=== PATIENT | male | born 1965 | race Caucasian/White ===

== ENCOUNTER 2024-06-16 14:51 | Emergency (ER) | payer BC, SELFPAY ==
--- NOTE | ~2024-06-16 | XR_ITS ---
EXAMINATION: XR hand RT min 3V DATE: 06/16/2024 16:28 INDICATION: Right hand injury. TECHNIQUE: 3 views of right hand were obtained. COMPARISON: None. FINDINGS: There is amputation of the tip of third distal phalanx. No fracture. There is severe osteoa rthritis of triscaphe joint and mild osteoarthritis of first carpometacarpal joint and some of the me tacarpophalangeal joints and interphalangeal joints. There is severe osteoarthritis of fourth distal interphalangeal joint and moderate osteoarthritis of second and fifth distal interphalangeal joints. IMPRESSION: 1. 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 Reviewed, dictated and finalized at location A. TRONICS DEPARTMENT MANAGER
--- NOTE | ~2024-06-16 | XR_ITS ---
EXAMINATION: XR femur LT min 2V DATE: 06/16/2024 16:28 INDICATION: Left lower limb injury. TECHNIQUE: 2 views of left femur on 4 radiographs were obtained. COMPARISON: None. FINDINGS: Alignment is normal. No fracture. There is mild left knee osteoarthritis. Left hip joint sp janny is normal. No knee joint effusion. IMPRESSION: 1. No fracture. Reviewed, dictated and finalized at location A. T AID INSTRUCTOR IMPRESSION: 1. No fracture.
--- NOTE | ~2024-06-16 | CT_ITS ---
CT cervical spine wo con Ordering provider: Tammi Tariq APRN History: . neck injury s/p trampled by cows . Comparison: None. Technique: CT of the cervical spine was performed without contrast. Sagittal and coronal reformatted images were also obtained and reviewed. Automated exposure control and iterative reconstruction josef hnique were employed. The dose-length product was 450.34 mGy-cm. FINDINGS: VERTEBRAE: No subluxation or acute fracture. The occipital condyles are intact. Degenerative changes of the spine. DISC SPACES: Narrowing of the disc C6-C7. Multilevel facet joint disease. Multilevel uncovertebral daniel int osteoarthritic changes. Narrowing of the right foramen at the level of C3-C4 bilateral narrowing of the foramina at the level of C4-C5, C5-C6 and C6-C7. PARASPINOUS SOFT TISSUES: Normal. IMPRESSION: No acute osseous abnormality cervical spine. Reviewed, dictated and finalized at location A. NCE PROFESSOR
--- NOTE | ~2024-06-16 | CT_ITS ---
CT brain wo con Ordering provider: Tammi Tariq APRN History: 59 years Male with . head injury after being trampled by cows . Comparison: None. Technique: CT of the head without contrast. Thin FINDINGS: BRAIN PARENCHYMA AND CSF SPACES: No midline shift, mass effect or hemorrhage. The brain parenchyma a nd CSF spaces are otherwise normal. VISUALIZED PARANASAL SINUSES: Right Maxillary sinus disease. MASTOIDS: Well aerated. BONES: The bones appear intact. SOFT TISSUES: Visualized nasopharynx is normal. Superficial soft tissues are normal. IMPRESSION: No acute intracranial findings. Reviewed, dictated and finalized at location A. EDITATION SPECIALIST
--- NOTE | ~2024-06-16 | CT_ITS ---
[facility] Ordering provider: Tammi Fleminguble History: . trampled by cows . Comparison: None. Technique: CT chest, abdomen and pelvis with IV contrast only. Radiation reduction technique utilized .The dose-length product was 1932.68 mGy-cm. 100 mL Omnipaque 350 was given IV. FINDINGS: CHEST: --VISUALIZED THORACIC INLET: Normal. --MEDIASTINUM: Aorta/coronary arteries: The thoracic aorta is normal. Heart/other: The heart is not enlarged. Lymph nodes: No mediastinal or hilar adenopathy. --LUNGS: Dependent atelectatic changes. No pulmonary nodules or masses. No infiltrates or effusions. No pneumothorax. --MUSCULOSKELETAL: Soft tissues: The superficial soft tissues are normal. ABDOMEN/PELVIS: --MUSCULOSKELETAL: Superficial soft tissues: The superficial soft tissues are normal. --UPPER ABDOMINAL ORGANS: Liver: Fat infiltration. Gallbladder: Normal. Spleen: Normal. Stomach/duodenum: Normal. Pancreas: Normal. Adrenals: Normal. Kidneys: Possible tiny stone in the left kidney lower pole. --PELVIC ORGANS: The bladder is normal. --BOWEL AND MESENTERY: Colon: No evidence of diverticulitis.. Normal appendix. Small Bowel: Normal. No obstruction. Peritoneum/mesentery: No free air or free fluid. No mesenteric lymphadenopathy. --RETROPERITONEUM: Normal aorta. No retroperitoneal hemorrhage or aortic trauma. No retroperitonea l lymphadenopathy or retroperitoneal hemorrhage. IMPRESSION: CHEST: 1. No acute cardiopulmonary pathology. ABDOMEN/PELVIS: 1. No acute abdominal process. 2. Fat infiltration of the liver. Highly suggestive stone in the left kidney lower pole. CT [facility] Ordering provider: Tammi Fleminguble History: . trampled by cows . Comparison: None. Technique: CT thoracic spine without contrast. Automated exposure control and iterative reconstructi on technique were employed. The dose-length product was 1932.68 mGy-cm. FINDINGS: VERTEBRAE: Normal height and alignment. No subluxation or visible acute fracture. Degenerative change s of the spine. The irregularity seen in the sternum is most likely artifactual. Clinical evaluation for tenderness advised. DISC SPACES: Well maintained. PARASPINOUS SOFT TISSUES: Normal. IMPRESSION: No acute osseous abnormality of the thoracic spine. CT [facility] Ordering provider: Tammi Tariq History: 59 years Male with . trampled by cows . Comparison: None. Technique: CT lumbar spine without contrast. Automated exposure control and iterative reconstruction technique were employed. The dose-length product was 1932.68 mGy-cm. FINDINGS: VERTEBRAE: Normal height and alignment. No subluxation or visible acute fracture. Degenerative change s of the spine. DISC SPACES: Narrowing of the disc L4-L5 and L5-S1. Multilevel facet joint disease. PARASPINOUS SOFT TISSUES: Mild atheromatous disease of the abdominal aorta. Bilateral sacroiliitis. IMPRESSION: No acute osseous abnormality. Multilevel degenerative disc disease Reviewed, dictated and finalized at location A. TY ENGINEER IMPRESSION: CHEST: 1. No acute cardiopulmonary pathology. ABDOMEN/PELVIS: 1. No acute abdominal process. 2. Fat infiltration of the liver. Highly suggestive stone in the left kidney l ower pole. CT [facility] Ordering provider: Tammi Tariq History: . trampled by cows . Comparison: None. Technique: CT thoracic spine without contrast. Automated exposure control and iterative reconstruction technique were employed. The dose-length product was 1 932.68 mGy-cm. FINDINGS: VERTEBRAE: Normal height and alignment. No subluxation or visible acute fractur e. Degenerative changes of the spine. The irregularity seen in the sternum is m ost likely artifactual. Clinical evaluation for tenderness advised. DISC SPACES: Well maintained. PARASPINOUS SOFT TISSUES: Normal. IMPRESSION: No acute osseous abnormality of the thoracic spine. CT chst ab pel thor lum w Ordering provider: Tammi Tariq History: 59 years Male with . trampled by cows . Comparison: None. Technique: CT lumbar spine without contrast. Automated exposure control and it erative reconstruction technique were employed. The dose-length product was 193 2.68 mGy-cm. FINDINGS: VERTEBRAE: Normal height and alignment. No subluxation or visible acute fractur e. Degenerative changes of the spine. DISC SPACES: Narrowing of the disc L4-L5 and L5-S1. Multilevel facet joint dise ase. PARASPINOUS SOFT TISSUES: Mild atheromatous disease of the abdominal aorta. Bilateral sacroiliitis.
--- NOTE | ~2024-06-16 | XR_ITS ---
EXAMINATION: XR tibia fibula RT 2V DATE: 06/16/2024 16:28 INDICATION: Right lower leg injury. TECHNIQUE: 2 views of right lower leg were obtained. COMPARISON: None. FINDINGS: Bone alignment is normal. No fracture. 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 There is mild right knee osteoarthritis. IMPRESSION: 1. No acute fracture. Reviewed, dictated and finalized at location A. ICULTURE TEACHER IMPRESSION: 1. No acute fracture.
[2024-06-16 14:52] VITALS: BP 146/101; PULSE 108; RESP 20; TEMP 36.5; O2SAT 97
--- NOTE | 2024-06-16 16:08 | ED.HEATRA ---
HPI - Head Injury General Chief complaint: Trauma <Tammi Tariq APRN - Last Filed: 06/16/24 16:12> Stated complaint: trampled by cows-right leg pain <Tammi Tariq APRN - Last Filed: 06/16/24 16:12> Time Seen by Provider: 06/16/24 15:55 <Tammi Tariq APRN - Last Filed: 06/16/24 16:12> Focused HPI: patient is a 59-year-old male reports earlier today he was trampled by two cows. He reports his injuries include a left lower extremity hematoma, head injury, left upper leg injury/hematoma, right hand injury/hematoma, left pelvis injury/hematoma, lower back injury/hematoma, and left hip injury/hematoma. Patient denies loss of consciousness and denies use of a blood thinner. He endorses most of his pain is in his lower extremities. Patient denies chest pain, shortness a breath, one-sided weakness/tingling/ numbness. GENERAL: Well-appearing, well-nourished, and in no acute distress. HEAD: Normocephalic, atraumatic. CHEST: Clear to auscultation. ?No respiratory distress. HEART: Tachycardia and regular rhythm. ? NEURO: ?Alert and oriented x3. FROM in all extremities. Patient screened in triage and initial orders placed.? ?Additional care and disposition to be based upon?diagnostic testing and treatment. <Tammi Tariq APRN - Last Filed: 06/16/24 16:12> History of Present Illness HPI Narrative: Patient 59-year-old gentleman who presents emergency department with chief complaint of being trampled by cows. Patient reports that he got stuck between the cows and reports that he was stepped on multiple times patient reports pain in his left lower extremity and right lower extremity low back pelvis area patient reports he did not lose consciousness reports he remembers the whole thing <Rios Jiang MD - Last Filed: 06/16/24 20:43> Related Data Allergies/Adverse reactions: Allergies Allergy/AdvReac Type Severity Reaction Status Date / Time No Known Allergies Allergy Verified 06/16/24 14:51 <Tammi Tariq APRN - Last Filed: 06/16/24 16:12> Review of Systems Review of Systems: A 10 system review of systems was completed on the patient and is negative except for what is stated in the HPI. Nursing and ancillary documentation was reviewed. <Rios Jiang MD - Last Filed: 06/16/24 20:43> Exam Narrative: GENERAL: Well-appearing, well-nourished, and in no acute distress. HEAD: Normocephalic, atraumatic. EYES: PERRLA and EOMI. ENT: Nares clear, no rhinorrhea or epistaxis. Mucous membranes moist. NECK: Supple. CHEST: Clear to auscultation. No respiratory distress. HEART: Regular rate and rhythm. No murmur heard. Normal peripheral pulses. ABDOMEN: Soft, nontender, nondistended, normal active bowel sounds. back: Multiple bruises present EXTREMITIES: Normal range of motion , multiple contusions. No edema. lower extremity compartments are soft SKIN: Warm, dry, no rash. NEURO: No focal deficits. Alert and oriented x3. PSYCH: Normal mood and affect. <Rios Jiang MD - Last Filed: 06/16/24 20:43> Course Vital Signs Vital signs: Vital Signs Temperature 36.5 C 06/16/24 14:52 Pulse Rate 108 H 06/16/24 14:52 Respiratory Rate 20 06/16/24 14:52 Blood Pressure 146/101 H 06/16/24 14:52 Pulse Oximetry 97 06/16/24 14:52 Oxygen Delivery Room Air 06/16/24 14:52 Temperature 36.4 C L 06/16/24 19:03 Pulse Rate 70 06/16/24 19:31 Respiratory Rate 17 06/16/24 19:31 Blood Pressure 150/94 H 06/16/24 19:31 Pulse Oximetry 95 06/16/24 19:31 Oxygen Delivery Room Air 06/16/24 14:52 <Tammi Tariq APRN - Last Filed: 06/16/24 16:12> Vital Signs Temperature 36.5 C 06/16/24 14:52 Pulse Rate 108 H 06/16/24 14:52 Respiratory Rate 20 06/16/24 14:52 Blood Pressure 146/101 H 06/16/24 14:52 Pulse Oximetry 97 06/16/24 14:52 Oxygen Delivery Room Air 06/16/24 14:52 Temperature 36.4 C L 06/16/24 19:03 Pulse Rate 70 06/16/24 19:31 Respiratory Rate 17 06/16/24 19:31 Blood Pressure 150/94 H 06/16/24 19:31 Pulse Oximetry 95 06/16/24 19:31 Oxygen Delivery Room Air 06/16/24 14:52 <Rios Jiang MD - Last Filed: 06/16/24 20:43> MDM - Head Injury MDM Narrative Medical decision making narrative: differential diagnosis includes intracranial hemorrhage, cervical spine fracture, thoracic trauma abdominal trauma extremity fractures imaging was obtained that showed no intracranial pathology no cervical spine fracture, chest abdomen pelvis injury plain film x-rays of the tib-fib femur and hand showed no evidence of fracture <Rios Jiang MD - Last Filed: 06/16/24 20:43> Lab Data Result diagrams: 06/16/24 17:08 06/16/24 17:08 <Tammi Tariq APRN - Last Filed: 06/16/24 16:12> Labs: Lab Results 06/16/24 Range/Units 17:08 WBC 12.7 H (4.5-10.0) K/mm3 RBC 5.13 (4.6-6.20) M/mm3 Hgb 16.1 (14.0-18.0) g/dL Hct 44.6 (42.0-52.0) % MCV 86.9 (80-100) fl MCH 31.4 (26-34) pg MCHC 36.1 H (32-36) g/dl RDW 13.1 (11.5-14.5) % Plt Count 236 (150-375) k/mm3 MPV 9.5 (7.4-10.4) fl Immature Gran % (Auto) 0.6 H (0-0.5) % Neut % (Auto) 72.4 (45.5-73.1) % Lymph % (Auto) 15.4 L (18.3-44.2) % O'Brien % (Auto) 10.1 H (2.6-8.5) % Eos % (Auto) 1.2 (0-4.4) % Baso % (Auto) 0.3 (0.2-1.2) % Lymph # (Auto) 1.96 (0.9-3.2) K/mm3 O'Brien # (Auto) 1.3 H (0.1-0.6) K/mm3 Eos # (Auto) 0.2 (0-0.3) K/mm3 Baso # (Auto) 0.0 (0.0-0.1) K/mm3 Abs Immat Gran (auto) 0.07 H (0.00-0.031) K/mm3 Absolute Neuts (auto) 9.2 H (1.3-6.7) K/mm3 Absolute Nucleated RBC 0.000 (0.0-0.012) K/mm3 Nucleated RBC % 0.0 (0.0-0.2) % PT 13.2 (11.1-14.7) Seconds INR 1.0 APTT 26.7 (22.3-36.8) Seconds Sodium 138 (137-145) mmol/L Potassium 3.8 (3.4-5.0) mmol/L Chloride 107 (98-107) mmol/L Carbon Dioxide 25 (22-30) mmol/L Anion Gap 6 (4-12) mmol/L BUN 19 (9-20) mg/dL Creatinine 0.80 (0.7-1.3) mg/dL Estim Creat Clear Calc 109 ml/min Estimated GFR > 60 (59 - ) Glucose 110 (65-110) mg/dL Calcium 9.3 (8.4-10.2) mg/dL Total Bilirubin 0.8 (0.2-1.3) mg/dL AST 39 (17-59) U/L ALT 38 (6-50) U/L Alkaline Phosphatase 86 (38-126) U/L Total Protein 7.0 (6.3-8.2) g/dL Albumin 4.4 (3.5-5.1) g/dL <Tammi Tariq, DEPARTMENT CHAIRPERSON - Last Filed: 06/16/24 16:12> Lab Results 06/16/24 Range/Units 17:08 WBC 12.7 H (4.5-10.0) K/mm3 RBC 5.13 (4.6-6.20) M/mm3 Hgb 16.1 (14.0-18.0) g/dL Hct 44.6 (42.0-52.0) % MCV 86.9 (80-100) fl MCH 31.4 (26-34) pg MCHC 36.1 H (32-36) g/dl RDW 13.1 (11.5-14.5) % Plt Count 236 (150-375) k/mm3 MPV 9.5 (7.4-10.4) fl Immature Gran % (Auto) 0.6 H (0-0.5) % Neut % (Auto) 72.4 (45.5-73.1) % Lymph % (Auto) 15.4 L (18.3-44.2) % O'Brien % (Auto) 10.1 H (2.6-8.5) % Eos % (Auto) 1.2 (0-4.4) % Baso % (Auto) 0.3 (0.2-1.2) % Lymph # (Auto) 1.96 (0.9-3.2) K/mm3 O'Brien # (Auto) 1.3 H (0.1-0.6) K/mm3 Eos # (Auto) 0.2 (0-0.3) K/mm3 Baso # (Auto) 0.0 (0.0-0.1) K/mm3 Abs Immat Gran (auto) 0.07 H (0.00-0.031) K/mm3 Absolute Neuts (auto) 9.2 H (1.3-6.7) K/mm3 Absolute Nucleated RBC 0.000 (0.0-0.012) K/mm3 Nucleated RBC % 0.0 (0.0-0.2) % PT 13.2 (11.1-14.7) Seconds INR 1.0 APTT 26.7 (22.3-36.8) Seconds Sodium 138 (137-145) mmol/L Potassium 3.8 (3.4-5.0) mmol/L Chloride 107 (98-107) mmol/L Carbon Dioxide 25 (22-30) mmol/L Anion Gap 6 (4-12) mmol/L BUN 19 (9-20) mg/dL Creatinine 0.80 (0.7-1.3) mg/dL Estim Creat Clear Calc 109 ml/min Estimated GFR > 60 (59 - ) Glucose 110 (65-110) mg/dL Calcium 9.3 (8.4-10.2) mg/dL Total Bilirubin 0.8 (0.2-1.3) mg/dL AST 39 (17-59) U/L ALT 38 (6-50) U/L Alkaline Phosphatase 86 (38-126) U/L Total Protein 7.0 (6.3-8.2) g/dL Albumin 4.4 (3.5-5.1) g/dL <Rios Jiang MD - Last Filed: 06/16/24 20:43> Discharge Plan Discharge Clinical Impression: Struck by cow, initial encounter, Contusion, lower limb, multiple sites, Back contusion <Tammi Tariq APRN - Last Filed: 06/16/24 16:12> Patient Disposition: Home, Self-Care <Tammi Tariq APRN - Last Filed: 06/16/24 16:12> Condition: Stable <Tammi Tariq APRN - Last Filed: 06/16/24 16:12> Instructions: Antibiotic Form, Contusion in Adults (ED), Hematoma (ED) <Tammi Tariq APRN - Last Filed: 06/16/24 16:12> Prescriptions: New hydrocodone-acetaminophen 5-325 mg tablet 1 tablet PO Q6H PRN (Reason: pain) 3 Days Qty: 12 0RF <Tammi Tariq APRN - Last Filed: 06/16/24 16:12> Follow-up/Referrals: Alen Talbot MD [Physician] - PHYSICIAN,AUTO CAMP ATTENDANT [Primary Care Provider] - <Tammi Tariq APRN - Last Filed: 06/16/24 16:12> Time of Disposition: 20:43 <Tammi Tariq APRN - Last Filed: 06/16/24 16:12> 20:43 <Rios Jiang MD - Last Filed: 06/16/24 20:43>
--- NOTE | 2024-06-16 16:12 | ECG_ITS ---
Test Date: 2024-06-16 17:07:06 Measurements Intervals Grant Rate: 91 P: 44 WI: 179 QRS: 27 QRSD: 83 T: 55 QT: 345 QTc: 425 Interpretive Statements SINUS RHYTHM No previous ECG available for comparison Electronically Signed On 06-17-2024 15:04:04 CUSTOM FRAME ASSEMBLER by Roddy Streeter M.D.
--- NOTE | 2024-06-16 16:24 | PC.NURSE ---
Pt in XRAY/imaging per in w/r when called for MSE orders.
[2024-06-16] MEDS: HYDROcodone/acetaminophen (*CRX) 5-325 MG TABLET 1 TAB PO ×3 (16:59→21:01)
[2024-06-16 17:16] LABS: Basophils Percent Auto 0.3 % (0.2-1.2); Eosinophils Absolute Auto 0.2 K/mm3 (0-0.3); Eosinophils Percent Auto 1.2 % (0-4.4); Hematocrit 44.6 % (42.0-52.0); Hemoglobin 16.1 g/dL (14.0-18.0); Immature Granulocyte Absolute 0.07 K/mm3 (0.00-0.031); Immature Granulocyte Percent A 0.6 % (0-0.5); Lymphocytes Absolute Auto 1.96 K/mm3 (0.9-3.2); Lymphocytes Percent Auto 15.4 % (18.3-44.2); Mean Corpuscular HGB Conc 36.1 g/dl (32-36); Mean Corpuscular Hemoglobin 31.4 pg (26-34); Mean Corpuscular Volume 86.9 fl (80-100); Mean Platelet Volume 9.5 fl (7.4-10.4); Monocytes Absolute Auto 1.3 K/mm3 (0.1-0.6); Monocytes Percent Auto 10.1 % (2.6-8.5); Neutrophils Absolute Auto 9.2 K/mm3 (1.3-6.7); Neutrophils Percent Auto 72.4 % (45.5-73.1); Platelet Count Result 236 k/mm3 (150-375); Red Blood Count 5.13 M/mm3 (4.6-6.20); Red Cell Distribution Width 13.1 % (11.5-14.5); White Blood Count 12.7 K/mm3 (4.5-10.0)
[2024-06-16 17:28] LABS: Alanine Aminotransferase 38 U/L (6-50); Albumin Level 4.4 g/dL (3.5-5.1); Alkaline Phosphatase 86 U/L (38-126); Anion Gap 6 mmol/L (4-12); Aspartate Amino Transferase 39 U/L (17-59); Bilirubin,Total 0.8 mg/dL (0.2-1.3); Blood Urea Nitrogen 19 mg/dL (9-20); Calcium 9.3 mg/dL (8.4-10.2); Carbon Dioxide 25 mmol/L (22-30); Chloride 107 mmol/L (98-107); Estimated CRCL calculation 109 ml/min; Estimated Glomerular Filt Rate > 60; Glucose 110 mg/dL (65-110); Potassium 3.8 mmol/L (3.4-5.0); Sodium 138 mmol/L (137-145)
[2024-06-16 17:33] LABS: Prothrombin Time 13.2 Seconds (11.1-14.7)
[2024-06-16 17:34] LABS: Partial Thromboplastin Time 26.7 Seconds (22.3-36.8)
[2024-06-16 19:03] VITALS: BP 142/85; PULSE 74; RESP 18; TEMP 36.4; O2SAT 96
[2024-06-16 19:31] VITALS: BP 150/94; PULSE 70; RESP 17; O2SAT 95
--- NOTE | 2024-06-16 19:38 | PC.NURSE ---
Pt refused morphine. GWENDOLYNP Deidre notified and stated to give pt [place] [phone]
== END 2024-06-16 21:02 | disposition home or self-care (01) ==
PROVIDERS: Registered Nurse; Emergency Provider Emergency Medicine
DX: S70.02XA Contusion of left hip, initial encounter (principal); S30.0XXA Contusion of lower back and pelvis, initial encounter; S60.221A Contusion of right hand, initial encounter; M18.9 Osteoarthritis of first carpometacarpal joint, unspecified; M19.031 Primary osteoarthritis, right wrist; M19.041 Primary osteoarthritis, right hand; M51.369 Other intervertebral disc degeneration, lumbar region without mention of lumbar back pain or lower extremity pain; K76.0 Fatty (change of) liver, not elsewhere classified; R93.422 Abnormal radiologic findings on diagnostic imaging of left kidney; W55.22XA Struck by cow, initial encounter
CPT/HCPCS: 36415; 70450; 71260; 72125; 72129; 72132; 73130; 73552; 73590; 74177; 80053; 85025; 85610; 85730; 93005; 99284; A9270; Q9967